=== PATIENT | female | born 1995 | race Hispanic/Latino ===

== ENCOUNTER 2018-01-10 17:46 | Emergency (ER) | payer OTHER ==
[2018-01-10] MEDS ORDERED: ORPHENADRINE CITRATE 30 MG/ML ML ONE (18:51)
[2018-01-10] MEDS ORDERED: KETOROLAC TROMETHAMINE 30MG/ML ONE (18:51)
== END 2018-01-10 19:13 | disposition home or self-care (01) ==
LOC: EDH 17:46
DX: M54.6 Pain in thoracic spine (principal); M54.2 Cervicalgia; V49.49XA Driver injured in collision with other motor vehicles in traffic accident, initial encounter; Y93.89 Activity, other specified; Y92.89 Other specified places as the place of occurrence of the external cause; Y99.8 Other external cause status
CPT/HCPCS: 81025; 96372 ×2; 99284; J1885; J2360